=== PATIENT | male | born 1955 | race Caucasian/White ===

== ENCOUNTER 2020-03-14 06:40 | Day surgery (SDC) | payer MEDICARE, BC ==
[2020-03-14] MEDS ORDERED: Lactated Ringers 1,000 ML IV SCH (07:00)
[2020-03-14] MEDS ORDERED: Albuterol 0.083% 2.5 MG/3 ML Neb Soln NEB ONE (07:22)
[2020-03-14] MEDS ORDERED: fentaNYL 100 MCG/2 ML SDV ONE (07:40)
[2020-03-14] MEDS ORDERED: Propofol 200 MG/20 ML SDV ONE ×2 (07:40→07:58)
--- NOTE | 2020-03-14 11:50 | OR ---
PREOPERATIVE DIAGNOSIS: Screening colonoscopy. POSTOPERATIVE DIAGNOSIS: Colon polyps. PROCEDURE PERFORMED: Total flexible colonoscopy with biopsies. ANESTHESIA: MAC anesthesia. COMPLICATIONS: None. FINDINGS: 1. Transverse colon polyp x2, 2 mm, cold snare. 2. Splenic flexure polyps x2, 2 mm, cold forceps. START TIME: 0748. CECUM TIME: 0753. STOP TIME: 0810. Bowel prep [place] class 2. INDICATION FOR PROCEDURE: Mr. Horner is a 65-year-old male who is here for routine screening colonoscopy. His last colonoscopy was 10 years ago at which point he had no polyps. His grandfather had colorectal cancer in his 80s. The patient denies bloody or dark black stools or change in bowel habits. DETAILS OF PROCEDURE: Informed consent was obtained. The patient was brought to the procedure room, placed in left lateral decubitus position. MAC anesthesia was induced by Anesthesia colleagues. Colonoscope equipped with an Endocuff device was introduced into the rectum and advanced all the way to the cecum. Colonoscope was then slowly withdrawn, and a retroflexed view was obtained. No pathology was identified except for what is seen and identified in the above finding section. The patient tolerated procedure well, was awoken from anesthesia by Anesthesia colleagues without incident. PATHOLOGY: A) Colon, transverse, polyp Tubular adenoma (1) Benign colonic mucosa without pathologic abnormality (1) No high-grade dysplasia or malignancy identified B) Colon, splenic flexure Tubular adenoma (1) Multiple fragments of benign colonic mucosa with surface hyperplastic change No high-grade dysplasia or malignancy identified Recommended repeat screening colonoscopy in 5 years. RKM: 03/14/2020 08:16:05 MODL: 03/14/2020 10:57:48 /[id number] PHANI
--- NOTE | 2020-03-22 12:39 | LETTER ---
03/21/2020 RE: FREDERICK VALERIO : 1955 [place] Valerio Dear Mr. Valerio: I am writing to inform you of the pathology results from your recent colonoscopy. You had 2 tubular adenomas. A tubular adenoma is a polyp which does not contain cancer, but it can become cancer which is why we removed them. You will need your next screening colonoscopy in 5 years. Warmest regards,
== END 2020-03-14 09:50 | disposition home or self-care (01) ==
LOC: VM.SDS 06:40
PROVIDERS: ATTEND Student in an Organized Health Care Education/Training Program
DX: Z12.11 Encounter for screening for malignant neoplasm of colon (principal); D12.3 Benign neoplasm of transverse colon; D12.6 Benign neoplasm of colon, unspecified; K63.89 Other specified diseases of intestine; I25.2 Old myocardial infarction; G47.33 Obstructive sleep apnea (adult) (pediatric); E78.5 Hyperlipidemia, unspecified; E11.22 Type 2 diabetes mellitus with diabetic chronic kidney disease; E11.40 Type 2 diabetes mellitus with diabetic neuropathy, unspecified; I12.9 Hypertensive chronic kidney disease with stage 1 through stage 4 chronic kidney disease, or unspecified chronic kidney disease; N18.30 Chronic kidney disease, stage 3 unspecified; J45.30 Mild persistent asthma, uncomplicated; R05 Cough; E66.9 Obesity, unspecified; R80.9 Proteinuria, unspecified; Z01.812 Encounter for preprocedural laboratory examination; Z20.828 Contact with and (suspected) exposure to other viral communicable diseases; E21.3 Hyperparathyroidism, unspecified; Z95.5 Presence of coronary angioplasty implant and graft; Z98.890 Other specified postprocedural states; Z79.4 Long term (current) use of insulin; Z79.899 Other long term (current) drug therapy; Z88.8 Allergy status to other drugs, medicaments and biological substances; Z68.34 Body mass index [BMI] 34.0-34.9, adult
CPT/HCPCS: 00812; 82962; 88305; J2704; J3010; J7120; J7613-GY; U0002